=== PATIENT | male | born 1955 | race Hispanic/Latino ===

== ENCOUNTER 2023-04-03 09:29 | Emergency (ER) | payer MEDICARE, OTHER, SELFPAY ==
[2023-04-03] VITALS (9 sets, daily range): BP systolic 111–147; BP diastolic 70–118; BMI 26.7
[2023-04-03 10:11] LABS: % Basophils 0.1 % (0-2); % Eosinophils 1.2 % (0-6); % Immature Granulocytes 0.4 % (0-0.5); % Lymphocytes 31.7 % (20.5-51.1); % Monocytes 10.7 % (1.7-9.3); % Neutrophils 55.9 % (42.2-75.2); Absolute Eosinophils 0.1 10^3/uL (0-0.7); Absolute Lymphocytes 2.4 10^3/uL (1.2-3.4); Absolute Monocytes 0.8 10^3/uL (0.1-0.6); Absolute Neutrophils 4.2 10^3/uL (1.4-6.5); Hematocrit 45.5 % (39.0-52.0); Hemoglobin 16.2 g/dL (13.0-18.0); Mean Corp Hgb Conc. 35.6 g/dL (33.0-37.0); Mean Corpuscular Hgb 32.9 pg (27.0-31.0); Mean Corpuscular Volume 92.5 fL (80.0-94.0); Mean Platelet Volume 9.5 fL (7.4-10.4); Nucleated Red Blood Cells % 0 % (-); Platelet Count 320 10^3/uL (130-400); Red Blood Cell Count 4.92 10^6/uL (4.70-6.10); Red Cell Dist. Width 12.5 % (11.5-14.5); White Blood Cell Count 7.6 10^3/uL (4.8-10.8)
[2023-04-03 10:23] LABS: ALT (SGPT) 16 U/L (0-50); AST (SGOT) 21 U/L (17-59); Albumin 4.4 g/dl (3.5-5.0); Alkaline Phosphatase 143 U/L (38-126); Blood Urea Nitrogen 17 mg/dl (9-20); Calcium 9.4 mg/dl (8.4-10.2); Carbon Dioxide 30 mmol/L (22-30); Chloride 100 mmol/L (98-107); Estimated Creatinine Clearance > 125 ml/min; Glucose 103 mg/dl (70-99); Lipase 150 U/L (23-300); Potassium 4.5 mmol/L (3.5-5.1); Sodium 138 mmol/L (135-145); Total Bilirubin 0.7 mg/dl (0.2-1.3); Total Protein 7.8 g/dl (6.3-8.2); eGFR > 60.00
[2023-04-03] MEDS: OMNIPAQUE 50 ML TUBE (10:37)
--- NOTE | 2023-04-03 12:15 | ED.GENMED ---
History of Present Illness
General
Chief Complaint: Catheter/Tube Problem
Source: patient and care home records
Time Seen by Provider: 04/03/23 09:40
Travel History
Have you had any contact with someone who has COVID-19?: Unable to Answer
Do you have any symptoms of coronavirus? Fever > 100 degrees, chills, cough, shortness of breath, sore throat, loss of taste or smell, muscle aches, or headache?: Unable to Answer
History of Present Illness
History of Present Illness:
67-year-old male with history of intracranial bleed, memory loss, traumatic brain injury who presents after staff noted that his G-tube was malfunctioning. The end of the tube broke and has been leaking. The patient offers no complaints.
Past History
Past History
ED Past Medical History: Other (Traumatic brain injury, subdural hematoma, memory loss,, hypertension, hyperlipidemia)
Social History
Tobacco: Former smoker
Phy Exam
Physical Exam
Physical Exam:
CONSTITUTIONAL Patient alert and oriented to person. Well-appearing. Vital signs reviewed.
HEAD atraumatic, normocephalic.
EYES eyelids normal to inspection, Extraocular muscles intact, Conjunctiva normal, Sclera normal.
NECK normal range of motion, Trachea midline, no jugular venous distention.
RESPIRATORY CHEST No respiratory distress noted, Chest expansion equal
ABDOMEN moderate diffuse tenderness, G-tube noted to left upper quadrant that is intact and easily flushes and drains GI contents but the cap is broken off
UPPER EXTREMITY no cyanosis, no edema.
LOWER EXTREMITY no cyanosis, no edema.
NEURO left facial droop, left-sided paralysis, slight dysarthria
Course
Orders/Labs/Results
Orders:
Orders
04/03/23 09:45
Iohexol [Omnipaque] See Protocol TUBE NOW STA
04/03/23 09:48
CT Abd/pel W Iv And Oral Contr Urgent
Comment:
Reason For Exam: diffuse abd pain
04/03/23 09:58
Complete Blood Count/With Diff Urgent
Comprehensive Metabolic Panel Urgent
Lipase Urgent
Abnormal Lab Results
04/03/23
09:58
MCH 32.9 H pg
(27.0-31.0)
Absolute Monos (auto) 0.8 H 10^3/uL
(0.1-0.6)
Monocytes % 10.7 H %
(1.7-9.3)
Creatinine 0.6 L mg/dL
(0.7-1.3)
Glucose 103 H mg/dl
(70-99)
Alkaline Phosphatase 143 H U/L
(38-126)
04/03/23 09:58
04/03/23 09:58
Vital Signs
Initial and Last Documented VS:
Initial Vital Signs
Temp Pulse Resp BP Pulse Ox
98.2 F 68 16 135/70 98
04/03/23 09:31 04/03/23 09:31 04/03/23 09:31 04/03/23 09:31 04/03/23 09:31
Last Documented Vital Signs
Temp Pulse Resp BP Pulse Ox
98.2 F 68 16 133/78 98
04/03/23 09:31 04/03/23 09:31 04/03/23 09:31 04/03/23 12:00 04/03/23 12:15
MDM/Problems Addressed
MDM/Problems Addressed:
Abdominal pain, constipation, cecal mass, G-tube malfunction, chronic traumatic brain injury
*Radiology
Radiology exam reviewed: preliminary read by ED provider (No free air noted) and radiology read reviewed
*Pulse Oximetry
Patient hypoxic: no
*Critical Care Note
Total Time (30-74mins, 75-104mins- exclusive of procedures): Not Applicable
Data Reviewed
Source: patient and records
Prescriptions/Medications Considered But Not Given:
Consider antibiotics but white count normal and no sign of intra-abdominal infection
Patient Management
Escalation/DeEscalation of care consider admission/obs:
G-tube Broken off. Replaced with a cockstop...no further draining. During exam however his abdomen was tender diffusely. CT noted for constipation but also concerning cecal mass possibility. Will refer for outpatient follow-up and recommend
stool softeners and enemas
Update Note
Update Note:
A copy of the patient's CT was sent with him back to his extended care facility
ED Attending Note
-
Portions of this chart may have been created with voice recognition software.� Occasional wrong word or��sound alike� substitutions may have occurred due to the inherent limitations of voice recognition software.
Discharge Plan
Departure
Patient Disposition: Home (Routine Discharge)
Date of Disposition: 04/03/23
Time of Disposition: 12:25
Patient with high blood pressure during this ER visit?: No
Discharge Problem:
Malfunction of gastrostomy tube, Acute constipation, possible colonic mass
Instructions: How to Care for Your Gastrostomy Tube
Prescriptions:
No Action
amantadine HCl 50 mg/5 mL Solution
100 mg feeding tube BID
docusate sodium 50 mg/5 mL Liquid
100 mg feeding tube BID
silver sulfadiazine [Silvadene] 1 % Cream
1 applic TOPICAL DAILY
Rx Instructions:
02/16/2023, day shift.
acetaminophen [Tylenol] 325 mg Tablet
650 mg feeding tube Q6H PRN (Reason: mild pain)
lidocaine 4 % Adhesive Patch,Medicated
1 patch TOPICAL BID
Rx Instructions:
02/16/2023, apply in AM, remove in PM.
albuterol sulfate 2.5 mg /3 mL (0.083 %) Solution For Nebulization
2.5 mg INHALATION R Q4HPRN PRN (Reason: wheezing)
atorvastatin [Lipitor] 10 mg Tablet
10 mg feeding tube QPM
melatonin 3 mg Tablet
9 mg feeding tube HS
sennosides [senna] 8.8 mg/5 mL Syrup
10 ml feeding tube HS
magnesium hydroxide [Milk of Magnesia] 400 mg/5 mL Suspension
30 ml PO DAILY PRN (Reason: if no BM x 3 days)
valproic acid (as sodium salt) 250 mg/5 mL Solution
500 mg feeding tube BID
bisacodyl 10 mg Suppository
10 mg GA DAILY PRN (Reason: if MOM ineffective)
Fleet Enema 19-7 gram/118 mL Enema
118 ml GA DAILYPRN PRN (Reason: if supp ineffective)
losartan 100 mg Tablet
100 mg feeding tube DAILY
Rx Instructions:
02/16/2023, hold for SBP<100.
Metamucil Fiber Singles 3.4 gram Powder In Packet
3.4 g PO TID
Rx Instructions:
02/16/2023, via PEG-Tube.
lactulose 20 gram/30 mL Solution
30 ml feeding tube BID
baclofen 5 mg Tablet
5 mg feeding tube BID
carvedilol 3.125 mg Tablet
3.125 mg feeding tube BID Qty: 0 0RF
pantoprazole [Protonix] [address] for susp in packet
40 mg PO BID Qty: 30 0RF
amlodipine [Norvasc] 10 mg Tablet
5 mg feeding tube DAILY Qty: 0 0RF
Rx Instructions:
02/16/2023, hold for SBP<100.
quetiapine 50 mg Tablet
25 mg feeding tube HS Qty: 0 0RF
Referrals:
Juvenal Roca DO [Family Provider] -
Activity Restrictions/Additional Instructions:
Please give Louis an enema today and tomorrow and use MiraLAX twice a day for the next 5 days. In addition, Sujatha CAT scan showed a suspected colonic mass. It is imperative that he has a follow-up with his doctor and gastroenterology to
further evaluate. Return immediately for vomiting, fevers, abdominal pain or any other concerns
Interventions
Interventions:
*Risk Screen - Suicide Last Done: 04/03/23 09:31
*General Assessment Last Done: 04/03/23 09:31
*Neglect/Abuse Screening Last Done: 04/03/23 09:31
ED- Fall Risk Assessment Last Done: 04/03/23 09:38
*ED COVID-19 Vaccine History Last Done: 04/03/23 09:31
NP-Dqbdtk-Chzrlhomox Assessment Last Done: 04/03/23 09:38
ED-Male Genitourinary Assessment Last Done: 04/03/23 09:38
== END 2023-04-03 16:28 | disposition home or self-care (01) ==
LOC: EMR 09:29
PROVIDERS: EMERGENCY PHYSICIAN Emergency Medicine; FAMILY PHYSICIAN Internal Medicine
DX: K94.23 Gastrostomy malfunction (principal); R10.84 Generalized abdominal pain; K59.09 Other constipation; R93.5 Abnormal findings on diagnostic imaging of other abdominal regions, including retroperitoneum; I10 Essential (primary) hypertension; E78.5 Hyperlipidemia, unspecified; Z87.820 Personal history of traumatic brain injury; Z87.891 Personal history of nicotine dependence
CPT/HCPCS: 99285; 43762; 74177; 80053; 83690; 85025; Q9967

== ENCOUNTER 2023-04-17 14:21 | Emergency (ER) | payer MEDICARE, OTHER, SELFPAY ==
[2023-04-17] VITALS (7 sets, daily range): BP systolic 97–128; BP diastolic 61–112; BMI 30.3
--- NOTE | 2023-04-17 16:35 | ED.GENMED ---
History of Present Illness
General
Chief Complaint: Catheter/Tube Problem
Source: patient
Exam Limitations: other (Patient with TBI unable to give history )
Time Seen by Provider: 04/17/23 16:17
Nursing documentation reviewed up to this point in time: agreed with
Travel History
Have you had any contact with someone who has COVID-19?: No
Do you have any symptoms of coronavirus? Fever > 100 degrees, chills, cough, shortness of breath, sore throat, loss of taste or smell, muscle aches, or headache?: No
History of Present Illness
History of Present Illness:
Patient is a 68-year-old male from [facility] with history of subarachnoid hemorrhage subdural hematoma TBI dysphagia PEG tube functional quadriplegia seizure hypertension hyperlipidemia hip fracture sent from [facility]
for split PEG tube. Patient in no acute distress, not able to give history.
Past History
Past History
ED Past Medical History: Other (Traumatic brain injury, subdural hematoma, memory loss,, hypertension, hyperlipidemia)
Social History
Tobacco: Former smoker
Review of Systems
Review of Systems
Allergies reviewed?: Yes
Unable to obtain full review of systems at this time due to: other (TBI unable to give history)
Other source history: half-way
All Other Systems: ROS reviewed and negative except as documented in HPI and ROS
ABD/GI: Reports other (PEG tube broken)
Phy Exam
General Physical Exam
General Presentation: no apparent distress
General age: appears stated age
General Skin: warm and dry
General Habitus: normal
General Mental: alert
General Hydration: appears well hydrated
Gastrointestinal Exam
Gastrointestinal Exam: non tender, soft and other (PEG tube with visible crack in tubing at distal end )
Neurological Exam
Neurological Exam: alert
Musculoskeletal Exam
Musculoskeletal Exam: full ROM
Skin Exam
Skin Exam: normal color and warm/dry
Psychiatric Exam
Psychiatric Exam: normal mood/affect
Course
Orders/Labs/Results
Orders:
Orders
04/17/23 16:53
Tube Check [CR Cont Inj Eval Tube(by Rad)] Urgent
Comment:
Reason For Exam: tube placement
Vital Signs
Initial and Last Documented VS:
Initial Vital Signs
Temp
97.6 F
04/17/23 14:23
Last Documented Vital Signs
Temp Pulse Resp BP Pulse Ox
97.6 F 64 18 97/61 98
04/17/23 14:23 04/17/23 14:26 04/17/23 14:26 04/17/23 15:16 04/17/23 15:18
Procedures
Other
Indication for procedure:: cracked PEG tube
Procedure completed by: myself
Additional Procedure:
20 Bulgarian feeding tube inserted into patient's room without difficulty
MDM/Problems Addressed
Differential Diagnosis Includes:
Not limited to peg tube dysfunction/broken PEG tube
MDM/Problems Addressed:
20 Bulgarian feeding tube was inserted in the patient's stoma without any difficulty will obtain Gastrografin tube check and plan to DC back to [facility]-way
*Radiology
Radiology exam reviewed: radiology read reviewed
*Pulse Oximetry
Patient hypoxic: no
*Critical Care Note
Total Time (30-74mins, 75-104mins- exclusive of procedures): Not Applicable
ED Attending Note
-
Portions of this chart may have been created with voice recognition software.� Occasional wrong word or��sound alike� substitutions may have occurred due to the inherent limitations of voice recognition software.
Discharge Plan
Departure
Patient Disposition: Home (Routine Discharge)
Date of Disposition: 04/17/23
Time of Disposition: 18:53
Patient with high blood pressure during this ER visit?: No
Condition: Fair
Covid-19: Not Applicable
Discharge Problem:
PEG TUBE PLACEMENT
Prescriptions:
No Action
amantadine HCl 50 mg/5 mL Solution
100 mg feeding tube BID
docusate sodium 50 mg/5 mL Liquid
100 mg feeding tube BID
silver sulfadiazine [Silvadene] 1 % Cream
1 applic TOPICAL DAILY
Rx Instructions:
02/16/2023, day shift.
acetaminophen [Tylenol] 325 mg Tablet
650 mg feeding tube Q6H PRN (Reason: mild pain)
lidocaine 4 % Adhesive Patch,Medicated
1 patch TOPICAL BID
Rx Instructions:
02/16/2023, apply in AM, remove in PM.
albuterol sulfate 2.5 mg /3 mL (0.083 %) Solution For Nebulization
2.5 mg INHALATION R Q4HPRN PRN (Reason: wheezing)
atorvastatin [Lipitor] 10 mg Tablet
10 mg feeding tube QPM
melatonin 3 mg Tablet
9 mg feeding tube HS
sennosides [senna] 8.8 mg/5 mL Syrup
10 ml feeding tube HS
magnesium hydroxide [Milk of Magnesia] 400 mg/5 mL Suspension
30 ml PO DAILY PRN (Reason: if no BM x 3 days)
valproic acid (as sodium salt) 250 mg/5 mL Solution
500 mg feeding tube BID
bisacodyl 10 mg Suppository
10 mg CO DAILY PRN (Reason: if MOM ineffective)
Fleet Enema 19-7 gram/118 mL Enema
118 ml CO DAILYPRN PRN (Reason: if supp ineffective)
losartan 100 mg Tablet
100 mg feeding tube DAILY
Rx Instructions:
02/16/2023, hold for SBP<100.
Metamucil Fiber Singles 3.4 gram Powder In Packet
3.4 g PO TID
Rx Instructions:
02/16/2023, via PEG-Tube.
lactulose 20 gram/30 mL Solution
30 ml feeding tube BID
baclofen 5 mg Tablet
5 mg feeding tube BID
carvedilol 3.125 mg Tablet
3.125 mg feeding tube BID Qty: 0 0RF
pantoprazole [Protonix] [address] for susp in packet
40 mg PO BID Qty: 30 0RF
amlodipine [Norvasc] 10 mg Tablet
5 mg feeding tube DAILY Qty: 0 0RF
Rx Instructions:
02/16/2023, hold for SBP<100.
quetiapine 50 mg Tablet
25 mg feeding tube HS Qty: 0 0RF
Referrals:
Juvenal Roca DO [Family Provider] -
Activity Restrictions/Additional Instructions:
Patient's PEG tube was replaced with 20 Bulgarian feeding tube. Confirmation was confirmed on x-ray
Interventions
Interventions:
*Risk Screen - Suicide Last Done: 04/17/23 14:25
*General Assessment Last Done: 04/17/23 14:25
*Neglect/Abuse Screening Last Done: 04/17/23 14:25
ED- Fall Risk Assessment Last Done: 04/17/23 14:36
*ED COVID-19 Vaccine History Last Done: 04/17/23 14:25
PP-Wonzyy-Irwdgnggfi Assessment Last Done: 04/17/23 14:35
ED-Male Genitourinary Assessment Last Done: 04/17/23 14:35
== END 2023-04-17 22:59 | disposition home or self-care (01) ==
LOC: EMR 14:21
PROVIDERS: EMERGENCY PHYSICIAN Emergency Medicine; FAMILY PHYSICIAN Internal Medicine
DX: K94.23 Gastrostomy malfunction (principal); Z87.891 Personal history of nicotine dependence; Z46.59 Encounter for fitting and adjustment of other gastrointestinal appliance and device
CPT/HCPCS: 99284; 43762; 49465

== ENCOUNTER 2023-07-21 15:24 | Emergency (ER) | payer MEDICARE, OTHER, SELFPAY ==
[2023-07-21 15:30] VITALS: BP 126/77
--- NOTE | 2023-07-21 16:03 | ED.GENMED ---
History of Present Illness
General
Chief Complaint: Bowel Problem
Time Seen by Provider: 07/21/23 15:37
Travel History
Have you had any contact with someone who has COVID-19?: No
Do you have any symptoms of coronavirus? Fever > 100 degrees, chills, cough, shortness of breath, sore throat, loss of taste or smell, muscle aches, or headache?: No
History of Present Illness
History of Present Illness:
68-year-old male with past medical history of stroke, TBI (subarachnoid, subdural) with left hemiparesis and aphasia who presents to the emergency room from [facility] where he lives in the alf; who presents to the emergency room for
evaluation of constipation. Patient can answer simple yes or no questions but is very limited as a historian due to his baseline neurologic dysfunction. Most of the history is obtained from staff at [facility]. They report that he has
constipation at baseline and he typically is on MiraLAX, lactulose, senna, Metamucil. Unfortunately they have noticed that he has not had a bowel movement for the past 10 days. They added sorbitol as well as Fleet enema to his bowel regimen but
were not able to get him to pass any stool. Decided to extend to the emergency room to be evaluated. He has not had any vomiting. When I ask him if he has any pain he tells me he does not. When asked if he feels normal he says 'yes.'
Past History
Past History
ED Past Medical History: Other (Traumatic brain injury, subdural hematoma, memory loss,, hypertension, hyperlipidemia)
Social History
Tobacco: Former smoker
Review of Systems
Review of Systems
Unable to obtain full review of systems at this time due to: non-verbal
Phy Exam
Physical Exam
Physical Exam:
General: Awake, alert, chronically ill-appearing
Head: Normocephalic, atraumatic
Eyes: Conjunctiva normal
Throat: Airway intact, handling secretions
Neck: Trachea midline
Lungs: Breathing comfortably not in distress
Heart: Regular rate
Abd: Soft, slightly distended but no significant tympany, no apparent tenderness to palpation; PEG tube in place
Rectal: Some small amount of soft stool in the rectal vault but no fecal impaction or rectal mass, no blood in the rectal vault, brown stool
Extremities: Contracted left side
Scores
Heart Failure Risk
Heart Failure Risk Score: Not Applicable
Heart Score for Chest Pain Patients
STEMI patient?: Not applicable
Withdrawal Assessment of Alcohol
Withdrawal Assessment Completed?: Not applicable
Course
Orders/Labs/Results
Orders:
Orders
07/21/23 15:42
CR Obstruct Series W/pa Chest Urgent
Comment:
Reason For Exam: constipation
07/21/23 16:00
Complete Blood Count/With Diff Urgent
Comprehensive Metabolic Panel Urgent
07/21/23 16:31
Enema- Treatment ONCE
Type: Milk of Molasses
Abnormal Lab Results
07/21/23
16:00
MCH 31.7 H pg
(27.0-31.0)
Abs Immat Gran (auto) 0.1 H 10^3/uL
(0-0.05)
Absolute Monos (auto) 0.9 H 10^3/uL
(0.1-0.6)
Monocytes % 9.7 H %
(1.7-9.3)
Creatinine 0.6 L mg/dL
(0.7-1.3)
Glucose 116 H mg/dl
(70-99)
Alkaline Phosphatase 151 H U/L
(38-126)
07/21/23 16:00
07/21/23 16:00
Vital Signs
Initial and Last Documented VS:
Initial Vital Signs
Temp Pulse Resp BP Pulse Ox
36.7 C 68 20 126/77 96
07/21/23 15:30 07/21/23 15:30 07/21/23 15:30 07/21/23 15:30 07/21/23 15:30
Last Documented Vital Signs
Temp Pulse Resp BP Pulse Ox
36.7 C 68 20 126/77 96
07/21/23 15:30 07/21/23 15:30 07/21/23 15:30 07/21/23 15:30 07/21/23 15:30
MDM/Problems Addressed
Differential Diagnosis Includes:
Constipation, fecal impaction, bowel obstruction
MDM/Problems Addressed:
68-year-old male presents from his alf for evaluation of severe constipation refractory to multiple outpatient treatments including MiraLAX, senna, lactulose, sorbitol, Fleet enema. Patient seems to indicate that he feels well with no
complaints although limited to essentially yes or no answers with baseline neurologic dysfunction. His vital signs are normal. Exam as above�notably no fecal impaction on exam. Will check basic labs to rule out electrolyte derangement which might
worsen constipation. Will check obstruction series. Will reassess after the above.
Labs reviewed: CBC and CMP unremarkable. Obstruction series negative for obstruction does show moderate colonic stool burden. Treated patient with milk of molasses enema and patient had multiple large-volume bowel movements subsequently. Will
discharge with dose of magnesium citrate to give via PEG on return to alf for continued constipation. Follow-up with primary physician. Discussed plan with alf staff as well as patient's family member who is at bedside.
Chronic conditions affecting care:
TBI/stroke with baseline neurologic dysfunction which likely exacerbates his constipation
*Radiology
Radiology exam reviewed: preliminary read by ED provider and radiology read reviewed
*Pulse Oximetry
Patient hypoxic: no
*Critical Care Note
Total Time (30-74mins, 75-104mins- exclusive of procedures): Not Applicable
Data Reviewed
Source: patient, records, family and alf
Patient Management
Discussion with other providers: [facility] staff (Discussed directly with alf staff)
ED Attending Note
-
Portions of this chart may have been created with voice recognition software.� Occasional wrong word or��sound alike� substitutions may have occurred due to the inherent limitations of voice recognition software.
Discharge Plan
Departure
Patient Disposition: Home (Routine Discharge)
Date of Disposition: 07/21/23
Time of Disposition: 16:59
Patient with high blood pressure during this ER visit?: No
Discharge Problem:
Acute constipation
Instructions: Constipation, Adult (DC)
Prescriptions:
New
magnesium citrate Solution
300 ml feeding tube ONCE Qty: 296 0RF
No Action
amantadine HCl 50 mg/5 mL Solution
100 mg feeding tube BID
docusate sodium 50 mg/5 mL Liquid
100 mg feeding tube BID
silver sulfadiazine [Silvadene] 1 % Cream
1 applic TOPICAL DAILY
Rx Instructions:
02/16/2023, day shift.
acetaminophen [Tylenol] 325 mg Tablet
650 mg feeding tube Q6H PRN (Reason: mild pain)
lidocaine 4 % Adhesive Patch,Medicated
1 patch TOPICAL BID
Rx Instructions:
02/16/2023, apply in AM, remove in PM.
albuterol sulfate 2.5 mg /3 mL (0.083 %) Solution For Nebulization
2.5 mg INHALATION R Q4HPRN PRN (Reason: wheezing)
atorvastatin [Lipitor] 10 mg Tablet
10 mg feeding tube QPM
melatonin 3 mg Tablet
9 mg feeding tube HS
sennosides [senna] 8.8 mg/5 mL Syrup
10 ml feeding tube HS
magnesium hydroxide [Milk of Magnesia] 400 mg/5 mL Suspension
30 ml PO DAILY PRN (Reason: if no BM x 3 days)
valproic acid (as sodium salt) 250 mg/5 mL Solution
500 mg feeding tube BID
bisacodyl 10 mg Suppository
10 mg DE DAILY PRN (Reason: if MOM ineffective)
Fleet Enema 19-7 gram/118 mL Enema
118 ml DE DAILYPRN PRN (Reason: if supp ineffective)
losartan 100 mg Tablet
100 mg feeding tube DAILY
Rx Instructions:
02/16/2023, hold for SBP<100.
Metamucil Fiber Singles 3.4 gram Powder In Packet
3.4 g PO TID
Rx Instructions:
02/16/2023, via PEG-Tube.
lactulose 20 gram/30 mL Solution
30 ml feeding tube BID
baclofen 5 mg Tablet
5 mg feeding tube BID
carvedilol 3.125 mg Tablet
3.125 mg feeding tube BID Qty: 0 0RF
pantoprazole [Protonix] [address] for susp in packet
40 mg PO BID Qty: 30 0RF
amlodipine [Norvasc] 10 mg Tablet
5 mg feeding tube DAILY Qty: 0 0RF
Rx Instructions:
02/16/2023, hold for SBP<100.
quetiapine 50 mg Tablet
25 mg feeding tube HS Qty: 0 0RF
Activity Restrictions/Additional Instructions:
Thank you for visiting the Emergency Department at [facility].
1. Please schedule a follow up appointment as directed. Call first thing tomorrow morning to make an appointment.
2. If indicated, please take your medications as instructed and indicated on discharge paperwork.
3. If any of your symptoms do not improve, or persist, or become more severe within 6-12 hours, please return to the emergency department for further care.
4. Please return to the emergency department if you develop a headache, neck pain/stiffness, fever greater than 100.4F, chest pain, shortness of breath, persistent nausea, vomiting, slurred speech, difficulty walking, numbness/tingling, weakness,
signs of infection or any other symptoms that are worrisome to you.
Please call [phone] if you have any questions.
Interventions
Interventions:
*ED COVID-19 Vaccine History Last Done: 07/21/23 15:33
DR-Bdqwel-Diifvrhgiz Assessment Last Done: 07/21/23 15:34
Discharge Date and Time
Print Language: [id number]
[2023-07-21 16:18] LABS: % Basophils 0.1 % (0-2); % Eosinophils 2.3 % (0-6); % Immature Granulocytes 0.5 % (0-0.5); % Lymphocytes 26.7 % (20.5-51.1); % Monocytes 9.7 % (1.7-9.3); % Neutrophils 60.7 % (42.2-75.2); Absolute Eosinophils 0.2 10^3/uL (0-0.7); Absolute Immature Granulocytes 0.1 10^3/uL (0-0.05); Absolute Lymphocytes 2.5 10^3/uL (1.2-3.4); Absolute Monocytes 0.9 10^3/uL (0.1-0.6); Absolute Neutrophils 5.6 10^3/uL (1.4-6.5); Hematocrit 45.7 % (39.0-52.0); Hemoglobin 15.7 g/dL (13.0-18.0); Mean Corp Hgb Conc. 34.4 g/dL (33.0-37.0); Mean Corpuscular Hgb 31.7 pg (27.0-31.0); Mean Corpuscular Volume 92.3 fL (80.0-94.0); Mean Platelet Volume 10.1 fL (7.4-10.4); Nucleated Red Blood Cells % 0 % (-); Platelet Count 201 10^3/uL (130-400); Red Blood Cell Count 4.95 10^6/uL (4.70-6.10); Red Cell Dist. Width 12.3 % (11.5-14.5); White Blood Cell Count 9.2 10^3/uL (4.8-10.8)
[2023-07-21 16:37] LABS: ALT (SGPT) 17 U/L (0-50); AST (SGOT) 20 U/L (17-59); Alkaline Phosphatase 151 U/L (38-126); Blood Urea Nitrogen 19 mg/dl (9-20); Calcium 9.6 mg/dl (8.4-10.2); Carbon Dioxide 27 mmol/L (22-30); Chloride 103 mmol/L (98-107); Glucose 116 mg/dl (70-99); Potassium 4.8 mmol/L (3.5-5.1); Sodium 140 mmol/L (135-145); Total Bilirubin 0.7 mg/dl (0.2-1.3); Total Protein 6.9 g/dl (6.3-8.2); eGFR > 60.00
[2023-07-21 16:39] VITALS: BP 121/65
[2023-07-21 19:33] VITALS: BP 110/68
== END 2023-07-21 20:06 | disposition home or self-care (01) ==
LOC: EMR 15:24
PROVIDERS: EMERGENCY PHYSICIAN Emergency Medicine; FAMILY PHYSICIAN Internal Medicine
DX: K59.09 Other constipation (principal); I10 Essential (primary) hypertension; E78.5 Hyperlipidemia, unspecified; I69.320 Aphasia following cerebral infarction; Z87.891 Personal history of nicotine dependence
CPT/HCPCS: 99283; 74022; 80053; 85025